=== PATIENT | male | born 1990 | race Two or more races ===

== ENCOUNTER 2018-06-16 23:26 | Emergency (ER) | payer OTHER ==
[2018-06-16 23:32] VITALS: BP 148/96
--- NOTE | 2018-06-16 23:38 | EDPHY ---
H & P Source: Patient Exam Limitations: No limitations - Medical/Surgical History Hx Asthma: No Hx Chronic Respiratory Disease: No Hx Diabetes: No Hx Cardiac Disease: No Hx Renal Disease: No Hx Cirrhosis: No Hx Alcoholism: No Hx HIV/AIDS: No Hx Splenectomy or Spleen Trauma: No Other PMH: depression, anxiety - Social History Smoking Status: Never smoked Time Seen by Provider: 06/16/18 23:29 HPI/ROS: HPI: This is a 27-year-old male presents with Chief Complaint: Right index finger splinter Location: Right index finger Quality: Splinter Duration: Prior to arrival Signs and Symptoms: No bleeding, no radiation, no numbness, no weakness, no tingling, no incontinence, no decreased range of motion, no swelling, + pain, no fever Timing: Acute Severity: Moderate Context: Patient is student at [employer], right-hand dominant, presents getting splinter a wood from fireplace mantle prior to arrival. He reports that he was playing Charades and acting out road rage when he accidentally hit his right index finger on the wood mantle. Complains of constant, moderate, nonradiating pain. Reports tetanus is current. Modifying Factors: None Comment: ROS: A comprehensive 10 system review of systems is otherwise negative aside from elements mentioned in the history of present illness. MEDICAL/SURGICAL/SOCIAL HISTORY: Medical history: Depression, anxiety. Surgical history: Denies Social history: Denies alcohol, drug, tobacco use. CONSTITUTIONAL: Anxious, well-developed, well-nourished young adult white male , awake and alert, no obvious distress HEENT: Atraumatic and normocephalic. NECK: supple, no midline tenderness Cardiovascular: Normal S1/S2, regular rate, regular rhythm, without murmur rub or gallop. PULMONARY/CHEST: Symmetrical and nontender. Clear to auscultation bilaterally. Good air movement. No accessory muscle usage. ABDOMEN: Soft, nondistended, nontender. EXTREMITIES: 2/2 pulses, strength 5/5, right index finger shows approximately 3 mm vertical wood splinter directly under the nail; no active bleeding. DIP/PIP /MCP flexion/extension intact with good light touch sensation. no deformities, no clubbing, no cyanosis or edema. NEUROLOGICAL: no focal neuro deficits. GCS 15. Light touch sensation intact. SKIN: Warm and dry, no erythema. no rash. Good capillary refill. (Florence Puentes) Constitutional: Initial Vital Signs Temperature (C) 37.1 C 06/16/18 23:30 Heart Rate 69 06/16/18 23:30 Respiratory Rate 16 06/16/18 23:30 Blood Pressure 148/96 H 06/16/18 23:30 O2 Sat (%) 97 06/16/18 23:30 O2 Delivery Mode Room Air Allergies/Adverse Reactions: No Known Allergies Allergy (Unverified 06/16/18 23:32) Home Medications: Medication Instructions Recorded Effexor Xr 06/16/18 Medical Decision Making Procedures: Procedure: Foreign body removal from right finger: Anesthesia: Local 2% 1% lidocaine without epinephrine After verbal consent from the patient, an embedded foreign body was removed from the nail bed of the right index finger. The foreign body was removed manually using a needle using direct visualization. Following removal there was no significant bleeding. There were no complications and the patient tolerated the procedure well. Irrigated copiously, bacitracin clean sterile dressing applied. The procedure was performed by myself. (Florence Puentes) ED Course/Re-evaluation: Vital signs reviewed and stable upon arrival. Local anesthesia provided; splinter removed with 1st attempt without complication. Tetanus is current. Irrigated copiously, bacitracin clean sterile dressing applied. Verbal and written wound care instructions provided No signs of neurovascular compromise/tenting of skin/compartment syndrome/ extremities and joints examined above and below area of concern and are neurovascularly intact. This patient was seen under the supervision of my secondary supervising physician. I evaluated care for this patient independently. Discussed this patient with Dr. Cason who did not see the patient. (Florence Puentes) PHYSICIAN DOCUMENTATION: The patient was evaluated and managed by the Physician Biometrics Experimentalist. My co- signature indicates that I have reviewed this chart and I agree with the findings and plan of care as documented. I am the secondary supervising physician. (Adamaris Cason) Differential Diagnosis: Differential diagnosis limited to foreign body, cellulitis, paronychia, nail bed injury, nerve injury (Florence Puentes) Departure - Departure Disposition: Home, Routine, Self-Care Clinical Impression: Splinter of finger Condition: Good Instructions: Soft Tissue Foreign Body (ED) Additional Instructions: Keep the dressing dry and in place for 48 hours. After 48 hours, you may remove the dressing; wash the site daily with mild soap and water; then pat dry. Take Tylenol 650 mg every 4 hours and/or Ibuprofen 600 mg every 8 hours with food as needed for pain. Return to the ER immediately if you experience redness, red streaks, have fevers /chills, flu like symptoms, limited range of motion, or any other symptoms that concern you. Referrals: [facility],. [Clinic] - Follow Up Only If Needed
== END 2018-06-16 23:44 | disposition home or self-care (01) ==
DX: S60.450A Superficial foreign body of right index finger, initial encounter (principal); W22.8XXA Striking against or struck by other objects, initial encounter; Y92.9 Unspecified place or not applicable; Y99.9 Unspecified external cause status; Y93.9 Activity, unspecified

== ENCOUNTER 2018-08-21 12:14 | Emergency (ER) | payer OTHER ==
--- NOTE | 2018-08-21 13:10 | EDPHY ---
H & P Time Seen by Provider: 08/21/18 12:49 HPI/ROS: CHIEF COMPLAINT: Right lateral ankle pain HISTORY OF PRESENT ILLNESS: 27-year-old male via private vehicle complaining of acute right lateral ankle pain. He was walking his dog, he rolled his ankle foot this morning and felt immediate pain to the lateral malleolus. He is able to bear partial weight. No proximal pain or injury. No fall from height. No foot or calcaneus pain. No 5th metatarsal pain. PRIMARY CARE PROVIDER: REVIEW OF SYSTEMS: A ten point review of systems was performed and is negative with the exception of the items mentioned in the HPI PHYSICAL EXAM (Prior to examination, patient consented to physical exam, hands were washed and my usual and customary physical exam procedures followed) 1) GENERAL: Well-developed, well-nourished, alert and oriented. Appears to be in no acute distress. 2) HEAD: Normocephalic 3) HEENT: Pupils equal, round, reactive to light bilaterally. 4) LUNGS: Breathing comfortably. 5) MUSCULOSKELETAL: Soft tissue swelling and tender to palpation lateral malleolus. Intact skin. proximal tibia and fibula nontender .5th MT nontender negative Bruce test, compartments soft 6) SKIN: Intact no tenting. No skin changes. 7) VASCULAR: DP,PT pulses and cap refill present and brisk DIFFERENTIAL DIAGNOSIS: in no particular order including but not limited to fracture, sprain, compartment syndrome Xray of the right ankle interpreted by myself: Distal fibula fracture Procedure: Crutches indications for crutch use discussed with patient. Patient fitted for crutches by ER staff. Observed ambulating with crutches. I think the patient has the capacity to safely use crutches. Usual and customary crutch walking precautions provided Procedure: Splint A farhana boot splint was applied by ER document management technician. After application of the splint I returned and re-examined the patient. The splint was adequately immobilizing the joint and distal to the splint the patient's circulation and sensation were intact. Patient shows no signs of compartment syndrome. Was given orthopedic precautions. Smoking Status: Never smoked Constitutional: Initial Vital Signs Temperature (C) 36.9 C 08/21/18 12:21 Heart Rate 90 08/21/18 12:21 Respiratory Rate 18 08/21/18 12:21 Blood Pressure 141/98 H 08/21/18 12:21 O2 Sat (%) 98 08/21/18 12:21 O2 Delivery Mode Room Air Allergies/Adverse Reactions: No Known Allergies Allergy (Verified 08/21/18 12:21) Home Medications: Medication Instructions Recorded Effexor Xr 06/16/18 oxyCODONE/APAP [Percocet 1 tab PO Q6 #5 tab 08/21/18] MDM/Departure - MDM Imaging: I viewed and interpreted images myself ED Course/Re-evaluation: The importance of follow-up has been stressed on numerous instances. Because he has an intra-articular component he has been informed of the risk of posttraumatic arthritis. He has soft compartments no evidence compartment syndrome. He agrees to follow-up with orthopedics has been given this referral information. Given my usual and customary orthopedic precautions and instructions. All questions and concerns addressed by myself. Care of patient under supervision of secondary supervising physician Dr Castillo . - Depart Disposition: Home, Routine, Self-Care Clinical Impression: Walking an animal Closed fracture of right distal fibula Qualifiers: Encounter type: initial encounter Fracture morphology: other fracture Qualified Code(s): S82.831A - Other fracture of upper and lower end of right fibula, initial encounter for closed fracture Condition: Good Instructions: Ankle Fracture (ED) Additional Instructions: Return to the ER immediately if you experience discoloration, have worsening pain, numbness, tingling, or any other symptoms that concern you. If you received x-rays in the emergency department today, be advised, that ligamentous , tendon, muscular, and other non-bony injury cannot be fully ruled out. Try to keep your affected extremity elevated above the level of your chest, and keep cold packs on the affected area, for the next 48 hours. Adult Pain & Fever Control: We recommend Acetaminophen (Tylenol) and Ibuprofen (Motrin,Advil) for pain and fever control. When fever is high or pain severe, both drugs can be used at the same time, but at different intervals. Please note the time differences. Your dose is: Acetaminophen 650mg every 4 to 6 hours Ibuprofen 600mg every 6 hours with food OR Note: do not take Acetaminophen with Hydrocodone (Vicodin, Lortab) or Oycodone (Percocet). These medications also contain Acetaminophen. No more than 3000mg of Acetaminophen should be taken in 24 hours (for an adult). Prescriptions: oxyCODONE/APAP 5/325 [Percocet 5/325] 1 tab PO Q6 #5 tab Referrals: Boubacar Ha MD [Medical Doctor] - 2-3 days, call for appt.
[2018-08-21 13:35] VITALS: BP 127/77
--- NOTE | 2018-08-22 16:33 | ASDISCHSUM ---
Discharge Information Plan Status:Home with No Needs Medically Cleared to Leave: Discharge Date:08/21/2018 01:35 PM CM D/C Disposition:Home, Routine, Self-Care ADT D/C Disposition:Home, Routine, Self-Care Projected Discharge Date:08/21/2018 01:35 PM Transportation at D/C:None or Unknown Discharge Delay Reason: Follow-Up Date:08/21/2018 01:35 PM Discharge Slot: Final Diagnosis: Placement Information Patient Contact Information Contact Name:LENNYVikas Relationship: Address: Home Phone: Work Phone: City: Alternate Phone: State/Exent Code: Email: Financial Information Financial Class:HMO and PPO Plans Primary Plan Desc:[employer] Primary Plan Number:[id number] Secondary Plan Desc: Secondary Plan Number: Assessment Information Intervention Information Intervention Type:Post Acute Communication Date of Service:08/22/2018 04:26 PM Patient Type:Emergency Room Staff Member:ANURAG Aden, Zabrina Hours:0.5 Discipline:Washcoat Wiper Severity: Comment:Received a voicemail forward from [facility] ent Rep. Pt had called and left a message requesti ng he be provided a refill of the Percoce t he was provided upon DC from the ED yesterday. CM reviewed chart and spoke to ED Provider who saw pt yesterday; confirmed that the ED cant provide refills and pt needs to follow up with ortho referral. CM called and spo ke with pt and explained that the ED can' t provide a refill for his Percocet. Pt states he has an appt w/ortho referral Dr Ha on Saturday. CM discussed pt still being able to take Ibuprofen and Tylenol in addition to the Percocet (a s explained and outlines in his DC instructions) and that is important to alternate the medications and not take them at the same time but that he also doesn't have to wait 6 hrs between taking any of the meds (as he was doing). Pt also states he is elevating his extremity "but probably not as oft en as I should," and is still applying ic e as directed. CM available PRN if needed.
== END 2018-08-21 13:35 | disposition home or self-care (01) ==
DX: S82.831A Other fracture of upper and lower end of right fibula, initial encounter for closed fracture (principal); X50.9XXA Other and unspecified overexertion or strenuous movements or postures, initial encounter; Y93.K1 Activity, walking an animal
CPT/HCPCS: L4386